=== PATIENT | male | born 1960 | race Caucasian/White ===

== ENCOUNTER → 2016-06-17 | Outpatient (CLI) | payer MEDICAID | LOC: FIMAGING 11:54 | PROVIDERS: ATTEND Physician Assistant | DX: M54.12 Radiculopathy, cervical region (principal); Z98.1 Arthrodesis status; M25.78 Osteophyte, vertebrae ==

== ENCOUNTER 2016-06-25 13:23 | Day surgery (SDC) | payer MEDICAID ==
[2016-06-25] MEDS ORDERED: LIDOCAINE 1% 2 ML INJ ONE (14:20)
[2016-06-25] MEDS ORDERED: MIDAZOLAM 2 MG/2 ML VIAL ONE (14:31)
[2016-06-25] MEDS ORDERED: fentaNYL 100 MCG/2 ML INJ ONE (14:38)
[2016-06-25] MEDS ORDERED: PROPOFOL 200 MG/20 ML VIAL ONE (14:38)
--- NOTE | 2016-06-25 16:03 | GPN ---
[f rep st] PROCEDURE NOTE PREPROCEDURE DIAGNOSIS: Need for screening colonoscopy. POSTPROCEDURE DIAGNOSIS: Normal colonoscopy. MEDICATIONS: Monitored anesthesia care. INDICATIONS: The patient is a 55-year-old gentleman with no family history for colon cancer or colo n polyps and needs a screening colonoscopy. The risks and the benefits of the procedure were discus sed the patient and consent obtained. Risks include, but not limited to, bleeding, perforation, and risks associated with sedation. The patient is ASA class 2. DESCRIPTION OF PROCEDURE: The adult colonoscope was advanced into the terminal ileum, which appears normal. The ileocecal valve, appendiceal orifice, cecum, ascending colon, hepatic flexure, transve rse colon, splenic flexure, descending colon, sigmoid colon, and rectum were normal. Retroflexed vi ews of the rectum were normal. IMPRESSION: Normal screening colonoscopy, including the terminal ileum. RECOMMENDATIONS: 1. Advance diet as tolerated. 2. Discharge to home with escort. 3. Repeat screening colonoscopy in 10 years. 4. Continue current medications. Thank you for allowing me to participate in the care of your patient. Please do not hesitate to omer brandi with questions. /[id number]/MODL
== END 2016-06-25 16:35 | disposition home or self-care (01) ==
LOC: FSGY 13:23
PROVIDERS: ATTEND Internal Medicine Gastroenterology
PROC: 0DJD8ZZ Inspection of Lower Intestinal Tract, Via Natural or Artificial Opening Endoscopic (ICD-10-PCS; principal; 2016-06-25 14:45)
DX: Z12.11 Encounter for screening for malignant neoplasm of colon (principal)
CPT/HCPCS: J2250; J2704; J3010

== ENCOUNTER 2016-09-16 13:39 | Emergency (ER) | payer MEDICAID ==
[2016-09-16 13:44] VITALS: TEMP 98.2
--- NOTE | 2016-09-16 14:03 | EDPHY ---
H & P Stated Complaint: anxiety "panic attack" - Personal History Current Tetanus/Diphtheria Vaccine: Unsure Current Tetanus Diphtheria and Acellular Pertussis (TDAP): Unsure - Medical/Surgical History Hx Asthma: No Hx Chronic Respiratory Disease: No Hx Diabetes: No Hx Cardiac Disease: No Hx Renal Disease: No Hx Cirrhosis: No Hx Alcoholism: No Hx HIV/AIDS: No Hx Splenectomy or Spleen Trauma: No Other PMH: hay fever, chronic pain, BUE nerve damage - Social History Smoking Status: Never smoked Time Seen by Provider: 09/16/16 13:46 HPI/ROS: CHIEF COMPLAINT: Left chest and neck discomfort HISTORY OF PRESENT ILLNESS: 55-year-old male history of depression had a friend drive him to the ER complaining of anxiety related to 2 days of vague left chest and left neck discomfort, not described as pain, described as "weird feeling". Because of his anxiety related to this feeling he has not been able to sleep well. He has had no syncope, no nausea or vomiting, no near syncope, no diaphoresis, no back pain, no dyspnea. No history of cardiac disease no history of thromboembolic disorder. No suicidal homicidal ideation. No major or minor head or neck Trauma or manipulation. PRIMARY CARE PROVIDER:Dr. Yost REVIEW OF SYSTEMS: A ten point review of systems was performed and is negative with the exception of the items mentioned in the HPI PAST MEDICAL & SURGICAL HISTORY: Depression. No history of cardiac disease. SOCIAL HISTORY: nonsmoker. No illicit drug use. No cocaine use FAMILY HISTORY: No family history of coronary artery disease PHYSICAL EXAM (Prior to examination, patient consented to physical exam, hands were washed and my usual and customary physical exam procedures followed) 1) GENERAL: Well-developed, well-nourished, alert and oriented. Appears to be in no acute distress. 2) HEAD: Normocephalic, atraumatic 3) HEENT: Pupils equal, round, reactive to light bilaterally. Sclera anicteric. No ptosis. Nasopharynx, oropharynx, clear, no lesions. Ears bilaterally with normal tympanic membranes. 4) NECK: Full range of motion no bruit 5) LUNGS: Clear auscultation bilaterally, no wheezes, no rhonchi, no retractions. 6) HEART: Regular rate and rhythm, no murmur, no heave, no gallop. 7) ABDOMEN: No guarding, no rebound, no focal tenderness, negative McBurney's, negative Sharma's, negative Rovsing's, negative peritoneal sign, 8) MUSCULOSKELETAL: Moving all extremities, no focal areas of tenderness, no obvious trauma. No peripheral edema or discoloration. 9) BACK: No CVA tenderness, no midline vertebral tenderness, no fluctuance, no step-off, no obvious trauma, no visual or palpable abnormality. 10) SKIN: No rash, no petechiae. 11) Psychiatric: Patient is oriented X 3, there is no agitation. DIFFERENTIAL DIAGNOSIS: In no particular order, including but not limited to myocardial ischemia, pulmonary embolus, chest wall pain, pleural inflammation and pulmonary infectious causes. (James Carr) Constitutional: Initial Vital Signs Temperature (C) 36.8 C 09/16/16 13:42 Heart Rate 72 09/16/16 13:42 Respiratory Rate 16 09/16/16 13:42 Blood Pressure 140/80 H 09/16/16 13:42 O2 Sat (%) 98 09/16/16 13:42 O2 Delivery Mode Room Air Allergies/Adverse Reactions: No Known Allergies Allergy (Unverified 12/05/14 19:55) Home Medications: Medication Instructions Recorded GABAPENTIN TID 12/05/14 Herbal Drugs 06/24/16 Nasonex PRN 06/24/16 ZYRTEC DAILY06 06/24/16 LORazepam [Ativan 1 mg (RX)] 1 mg PO Q6 PRN #7 tab 09/16/16 Medical Decision Making - Diagnostics Imaging Results: Imaging Impressions Chest X-Ray 09/16/16 14:00 Impression: Chest negative for acute abnormality. ED Course/Re-evaluation: 3:50 p.m.: Re-evaluation, he is calm, discussed his diagnostic results are negative, negative troponin, negative D-dimer in the presence of symptoms with past 2 days. I think that GA, pulmonary embolus, less than likely in this patient. In addition further inquiry about history of neck or head trauma he denies chiropractic manipulation, has no clinical signs of cervico-cranial vessel dissection. (James Carr) I did not see this patient while he was in the emergency department. However his care was discussed with the PA while the patient was in the department. I agree with treatment plan and management (Beto Moreland) - Data Points Laboratory Results: Laboratory Results 09/16/16 14:00 09/16/16 14:00 09/16/16 09/16/16 09/16/16 14:00 14:00 14:00 WBC 6.28 10^3/uL 10^3/uL (3.80-9.50) RBC 4.66 10^6/uL 10^6/uL (4.40-6.38) Hgb 14.8 g/dL g/dL (13.7-17.5) Hct 42.5 % % (40.0-51.0) MCV 91.2 fL fL (81.5-99.8) MCH 31.8 pg pg (27.9-34.1) MCHC 34.8 g/dL g/dL (32.4-36.7) RDW 12.8 % % (11.5-15.2) Plt Count 179 10^3/uL 10^3/uL (150-400) MPV 10.9 fL fL (8.7-11.7) Neut % (Auto) 67.1 % % (39.3-74.2) Lymph % (Auto) 23.7 % % (15.0-45.0) [facility] % (Auto) 5.4 % % (4.5-13.0) Eos % (Auto) 3.0 % % (0.6-7.6) Baso % (Auto) 0.6 % % (0.3-1.7) Nucleat RBC Rel Count 0.0 % % (0.0-0.2) Absolute Neuts (auto) 4.21 10^3/uL 10^3/uL (1.70-6.50) Absolute Lymphs (auto) 1.49 10^3/uL 10^3/uL (1.00-3.00) Absolute Monos (auto) 0.34 10^3/uL 10^3/uL (0.30-0.80) Absolute Eos (auto) 0.19 10^3/uL 10^3/uL (0.03-0.40) Absolute Basos (auto) 0.04 10^3/uL 10^3/uL (0.02-0.10) Absolute Nucleated RBC 0.00 10^3/uL 10^3/uL (0-0.01) Immature Gran % 0.2 % % (0.0-1.1) Immature Gran # 0.01 10^3/uL 10^3/uL (0.00-0.10) D-Dimer < 0.27 ug/mLFEU ug/mLFEU (0.00-0.50) Sodium 142 mEq/L mEq/L (134-144) Potassium 4.5 mEq/L mEq/L (3.5-5.2) Chloride 103 mEq/L mEq/L (97-110) Carbon Dioxide 25 mEq/l mEq/l (22-31) Anion Gap 14 mEq/L mEq/L (8-16) BUN 11 mg/dL mg/dL (7-23) Creatinine 0.9 mg/dL mg/dL (0.7-1.3) Estimated GFR > 60 Glucose 122 mg/dL H mg/dL (70-100) Calcium 9.7 mg/dL mg/dL (8.5-10.4) Troponin I < 0.012 ng/mL ng/mL (0-0.034) Departure - Departure Disposition: Home, Routine, Self-Care Clinical Impression: Anxiety Condition: Good Instructions: Anxiety (ED) Additional Instructions: Return to the emergency department if you develop chest pain, shortness of breath, dizziness or any other symptoms that concern Referrals: Partha Yost MD [Primary Care Provider] - 1-2 days without fail Prescriptions: LORazepam [Ativan 1 mg (RX)] 1 mg PO Q6 PRN #7 tab PRN Reason: Anxiety
[2016-09-16 14:14] LABS: % IMMATURE GRANULYOCYTES 0.2 % (0.0-1.1); ABSOLUTE IMMATURE GRANULOCYTES 0.01 10^3/uL (0.00-0.10); ADD DIFF? NO; ADD MORPH? NO; ADD SCAN? NO; ATYPICAL LYMPHOCYTE FLAG 20 (0-99); FRAGMENT RBC FLAG 0 (0-99); HEMATOCRIT 42.5 % (40.0-51.0); HEMOGLOBIN 14.8 g/dL (13.7-17.5); LEFT SHIFT FLG 0 (0-99); LIPEMIA HEMOLYSIS FLAG 90 (0-99); MEAN CELL HEMOGLOBIN 31.8 pg (27.9-34.1); MEAN CELL HEMOGLOBIN CONCENTR. 34.8 g/dL (32.4-36.7); MEAN CELL VOLUME 91.2 fL (81.5-99.8); MEAN PLATELET VOLUME 10.9 fL (8.7-11.7); PLATELET CLUMPS FLAG 10 (0-99); PLATELET COUNT 179 10^3/uL (150-400); RED BLOOD CELL COUNT 4.66 10^6/uL (4.40-6.38); RED CELL DISTRIBUTION WIDTH 12.8 % (11.5-15.2)
--- NOTE | 2016-09-16 14:23 | CPEKG ---
Heart Rate: 61 RR Interval: 984 P-R Interval: 160 QRSD Interval: 102 QT Interval: 416 QTC Interval: 419 P Rayland: 73 QRS Rayland: 71 T Wave Ray[place]: 32 EKG Severity - NORMAL ECG - EKG Impression: SINUS RHYTHM Electronically Signed By: Jesus Smart 16-Sep-2016 21:01:28
[2016-09-16 14:29] LABS: ANION GAP 14 mEq/L (8-16); CALCIUM 9.7 mg/dL (8.5-10.4); CARBON DIOXIDE 25 mEq/l (22-31); CHLORIDE 103 mEq/L (97-110); CREATININE 0.9 mg/dL (0.7-1.3); GLOMERULAR FILTRATION RATE > 60; GLUCOSE 122 mg/dL (70-100); POTASSIUM 4.5 mEq/L (3.5-5.2); SODIUM 142 mEq/L (134-144)
[2016-09-16 14:41] LABS: TROPONIN I < 0.012 ng/mL (0-0.034)
[2016-09-16 16:17] VITALS: BP 108/78; PULSE 62; RESP 20; O2SAT 99
== END 2016-09-16 16:16 | disposition home or self-care (01) ==
DX: F41.9 Anxiety disorder, unspecified (principal)

== ENCOUNTER 2017-04-02 10:21 | Emergency (ER) | payer MEDICAID ==
--- NOTE | 2017-04-02 11:03 | EDPHY ---
General Time Seen by Provider: 04/02/17 10:42 Narrative: CHIEF COMPLAINT: Right biceps pain HISTORY OF PRESENT ILLNESS: Patient complains of pain in the right brachium. This pain is been present for "a while." It has been increasing recently. Dislocated in the distal biceps. He reports an injury to it in the past. There was an ultrasound performed last year ordered by his primary care physician with "an atypical location" of injury per patient. He has no difficulty using the arm but it is very painful to bend it, straighten it or lift things. 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 No changes in this. No new trauma or injury. No formal evaluation by Orthopedics. Right-hand dominant. No other associated complaints or modifying factors. REVIEW OF SYSTEMS: Ten systems reviewed and are negative unless otherwise noted in the HPI PCP: Dr. Partha Yost SPECIALISTS: None PAST MEDICAL HISTORY: Depression, insomnia, neuropathy PAST SURGICAL HISTORY: No recent surgical history SOCIAL HISTORY: Nonsmoker. Lives and works here locally. FAMILY HISTORY: Noncontributory EXAMINATION General Appearance: Alert, no distress Head: normocephalic, atraumatic Eyes: Pupils equal and round, no conjunctival pallor or injection ENT, Mouth: Mucous membranes moist Respiratory: No retractions or distress. Cardiovascular: Regular rate symmetric radial pulses 2+. Neurological: A&O, nonfocal, strength is symmetric in the upper extremities. There is no wrist drop. There is good strength of the interossei. Skin: Warm and dry, no rash. No petechiae or purpura Extremities: Tenderness of the right brachium anteriorly over the distal portion. No tenderness of the right shoulder or elbow. Range of motion of the shoulders and elbows symmetric. No pain with extension of the elbow. Psychiatric: Mood and affect normal DIFFERENTIAL DIAGNOSES: Including but not limited to biceps tendon injury, biceps strain, elbow sprain MDM: 10:50 a.m. Acute on chronic right biceps pain. Patient has a chronic injury that has not yet been formally evaluated by an orthopedist. He has an ultrasound from primary care physician last year. It is a distal biceps muscle injury. He has ongoing neuropathy from this is unchanged. He has no weakness, wrist drop or decreased strength of the thenar eminence or interossei. He is in no acute distress from this. He is here only because he is asking for pain control and referral to Orthopedics. We discussed the nature of referrals, typically going to primary care physician with his insurance. We also discussed that I am happy to provide the on-call orthopedic follow-up for him to contact. Patient may need to go through his primary care physician, thus I have discussed with case management she will assist. He will be discharged home with short course of pain medication, sling for intermittent care. We discussed removing the sling intermittently. We discussed ED precautions. SUPERVISION: This patient was independently evaluated without direct involvement of or examination by the attending physician. - History Smoking Status: Never smoked - Objective Vital Signs: Initial Vital Signs Temperature (C) 98.2 F 04/02/17 10:23 Heart Rate 72 04/02/17 10:23 Respiratory Rate 16 04/02/17 10:23 Blood Pressure 107/67 04/02/17 10:23 O2 Sat (%) 96 04/02/17 10:23 O2 Delivery Mode Room Air Allergies/Adverse Reactions: No Known Allergies Allergy (Verified 04/02/17 10:22) Home Medications: Medication Instructions Recorded Gabapentin [Neurontin 100 MG (*)] 100 mg PO HS 04/02/17 buPROPion [Wellbutrin 100mg (*)] 04/02/17 busPIRone [Buspar (*)] 10 mg PO 04/02/17 oxyCODONE HCL/ACETAMINOPHEN 1 each PO Q4-6PRN PRN #13 tablet 04/02/17 [Percocet 5-325 mg Tablet] traZODone [traZODONE 100MG (*)] 100 mg PO 04/02/17 Departure - Departure Disposition: Home, Routine, Self-Care Clinical Impression: Biceps muscle strain Qualifiers: Encounter type: initial encounter Laterality: right Qualified Code(s): S46.211A - Strain of muscle, fascia and tendon of other parts of biceps, right arm, initial encounter Biceps muscle tear Qualifiers: Encounter type: initial encounter Laterality: right Qualified Code(s): S46.211A - Strain of muscle, fascia and tendon of other parts of biceps, right arm, initial encounter Condition: Good Instructions: Repairs of the Biceps and Triceps Tendons (DC), Tendon Rupture ( ED) Additional Instructions: 1. Continue weight-bearing activity as tolerated 2. Follow up with primary care physician for re-evaluation and to discuss referral to orthopedist 3. Contact the on-call orthopedist as provided Referrals: Partha Yost MD [Primary Care Provider] - As per Instructions John Ron MD [Medical Doctor] - As per Instructions Prescriptions: oxyCODONE HCL/ACETAMINOPHEN [Percocet 5-325 mg Tablet] 1 each PO Q4-6PRN PRN # 13 tablet PRN Reason: Pain, Breakthrough
[2017-04-02 11:17] VITALS: BP 108/64; PULSE 68; RESP 18; TEMP 97.7; O2SAT 94
--- NOTE | 2017-04-02 11:35 | ASMTCMCOM ---
CM Note CM Note Notes: Orthopedic referral faxed to Dr. John Ron , [facility]. ML with patient's PCP, Dr. Partha Yost . Patient encouraged to follow up with his PCP for further navigation of referral, as well as to have US from 08/2016 available and/or faxed to Dr. Ron's office. Patient verbalizes understanding regarding follow up Date Signed: 04/02/2017 11:34 AM Electronically Signed By:Brooke Sesay RN
== END 2017-04-02 11:16 | disposition home or self-care (01) ==
DX: S46.211A Strain of muscle, fascia and tendon of other parts of biceps, right arm, initial encounter (principal); X58.XXXA Exposure to other specified factors, initial encounter
CPT/HCPCS: A4565

== ENCOUNTER → 2017-05-21 | Outpatient (CLI) | payer MEDICAID | LOC: FIMAGING 16:12 | PROVIDERS: ATTEND Family Medicine Sports Medicine | DX: M25.522 Pain in left elbow (principal); M77.9 Enthesopathy, unspecified ==

== ENCOUNTER → 2017-06-09 | Outpatient (CLI) | payer MEDICAID | LOC: FIMAGING 11:46 | PROVIDERS: ATTEND Family Medicine Sports Medicine | DX: M54.12 Radiculopathy, cervical region (principal); Z98.1 Arthrodesis status ==

== ENCOUNTER → 2017-06-10 | Outpatient (CLI) | payer MEDICAID | LOC: FIMAGING 13:13 | PROVIDERS: ATTEND Family Medicine Sports Medicine | DX: Z13.820 Encounter for screening for osteoporosis (principal); M85.89 Other specified disorders of bone density and structure, multiple sites; M54.12 Radiculopathy, cervical region; Z82.62 Family history of osteoporosis ==

== ENCOUNTER → 2017-07-26 | Outpatient (CLI) | payer MEDICAID | LOC: FIMAGING 08:10 | PROVIDERS: ATTEND Neurological Surgery | DX: Z98.1 Arthrodesis status (principal); M50.10 Cervical disc disorder with radiculopathy, unspecified cervical region; M48.02 Spinal stenosis, cervical region ==

== ENCOUNTER → 2017-11-13 | Outpatient (CLI) | payer MEDICAID | LOC: FLAB 12:23 | PROVIDERS: ATTEND Physician Assistant | DX: Z47.89 Encounter for other orthopedic aftercare (principal); Z98.1 Arthrodesis status ==

== ENCOUNTER → 2018-01-28 | Outpatient (CLI) | payer MEDICAID | LOC: FIMAGING 11:17 | PROVIDERS: ATTEND Physician Assistant | DX: Z98.1 Arthrodesis status (principal) ==